=== PATIENT | male | born 1945 | race African-American/Black ===

== ENCOUNTER 2020-04-15 21:14 | Inpatient (IN) ==
[2020-04-15] MEDS ORDERED: ACETAMINOPHEN 325 MG TABLET PO PRN (22:50)
[2020-04-15] MEDS ORDERED: ONDANSETRON 4 MG/2 ML VIAL IV PRN (22:50)
[2020-04-15] MEDS ORDERED: ALBUTEROL 2.5 MG/3 ML NEB RESP TX PRN (22:50)
[2020-04-15] MEDS ORDERED: DOPamine 800 MG/250 ML PREMIX IV SCH (23:00)
[2020-04-15 23:01] LABS: Allen Test Positive; Pt O2 Delivery Device Ventilator
[2020-04-15 23:02] LABS: ABG Base Excess -0.5 MMOL/L (-2.5-2.5); ABG Oxygen Saturation 98.6 % (95-100); ABG PCO2 36.1 MM HG (35-48); ABG PH 7.422 (7.35-7.45); ABG TCO2 21.1 MMOL/L (23-27)
[2020-04-15] MEDS ORDERED: PIPERACILLIN/TAZOBACTAM 3,375 MG in SODIUM CHLORIDE 0.9% 100 ML IV SCH (23:30)
[2020-04-15] MEDS: SODIUM CHLORIDE 0.9% 1,000 ML IV SCH (23:35)
[2020-04-15] MEDS ORDERED: NOREPINEPHRINE 4 MG/4 ML VIAL IV ONE ×2 (23:39→23:40)
[2020-04-15] MEDS: PHENYLEPHRINE DRIP 40 MG/250 ML PREMIX IV PRN (23:41)
[2020-04-15] MEDS ORDERED: PHENYLEPHRINE DRIP 40 MG/250 ML PREMIX IV ONE (23:42)
[2020-04-15] MEDS ORDERED: SODIUM CHLORIDE 0.9% 500 ML IV ONE (23:48)
[2020-04-16] MEDS: PIPERACILLIN/TAZOBACTAM 3,375 MG in SODIUM CHLORIDE 0.9% 100 ML IV SCH ×2 (00:16→12:19)
[2020-04-16 02:28] LABS: Apearance,Urine Slightly Hazy (Clear); Bilirubin,Urine Negative (Negative); Blood, Urine Negative (Negative); Glucose,Urine (UA) Negative (Negative); Ketones,Urine Negative (Negative); Nitrite,Urine Negative (Negative); Protein,Urine 100 MG/DL; RBC,Urine 4 /HPF (0-4); Squamous Epithelial Cell,Urine Occasional /HPF (0-10); Urine Color Yellow (Yellow); Urine Specific Gravity 1.017 (1.001-1.035); Urine Urobilinogen < 2.0 EU/DL (0.2-1.0); WBC,Urine 135 /HPF (0-6)
[2020-04-16] MEDS: SODIUM CHLORIDE 0.9% 1,000 ML IV SCH ×2 (03:29→09:17)
[2020-04-16 04:50] LABS: Allen Test Positive; Pt O2 Delivery Device Ventilator
[2020-04-16 04:59] LABS: ABG Base Excess -0.3 MMOL/L (-2.5-2.5); ABG HCO3 24.2 MMOL/L (20-26); ABG PCO2 29.3 MM HG (35-48); ABG TCO2 20.4 MMOL/L (23-27)
[2020-04-16 05:27] LABS: Basophils % 0.1 % (0.0-0.8); Hematocrit 31.4 VOL% (42.0-52.0); Hemoglobin 9.5 GM/DL (14.0-18.0); Immature Granulocytes % 1.2 %; Immature Granulocytes Absolute 0.28 #; Lymphocytes # 3.1 10*3/uL (1.4-4.0); Lymphocytes % 12.9 % (21.2-54.2); Mean Corpuscular HGB Conc 30.3 GM/DL (32-36); Mean Platelet Volume 12.7 FL (9.6-12.0); Monocytes % 6.5 % (1.7-12.7); NRBC # 0.02 10*3/uL; Neutrophils % 79.3 % (38.7-73.9); Platelet Count 297 T/CUMM (130-400); Red Blood Count 3.11 MC/CUMM (3.8-5.5); Red Cell Distribution Width 15.7 % (9.3-17.3); White Blood Count 24.3 T/CUMM (4-12)
[2020-04-16 05:41] LABS: Calcium 8.7 MG/DL (8.5-10.1); Osmolality,Calculated 346.4 MOS/KG (273-304)
[2020-04-16 05:50] LABS: Band Neutrophils 1 % (0-10); Hypochromasia Slight; Lymphocytes 10 % (20-55); Macrocytosis Slight; Platelet Estimate Normal; Segmented Neutrophils 87 % (50-85); Total Cells Counted 100
[2020-04-16] MEDS: DEXTROSE 5% NACL 0.45% 1,000 ML IV SCH ×2 (08:27→09:25)
[2020-04-16] MEDS ORDERED: ENOXAPARIN 30 MG/0.3 ML SYRINGE SUBCUT SCH (09:00)
[2020-04-16] MEDS ORDERED: ENOXAPARIN 40 MG/0.4 ML SYRINGE SUBCUT SCH (09:00)
[2020-04-16] MEDS ORDERED: PANTOPRAZOLE 40 MG VIAL IV SCH (09:00)
[2020-04-16] MEDS ORDERED: PANTOPRAZOLE 40 MG TABLET PO SCH (09:00)
[2020-04-16 10:33] LABS: Calcium 9.1 MG/DL (8.5-10.1); Osmolality,Calculated 346.6 MOS/KG (273-304)
[2020-04-16] MEDS: PHENYLEPHRINE DRIP 40 MG/250 ML PREMIX IV PRN (11:31)
[2020-04-16] MEDS ORDERED: VANCOMYCIN INJ 750 MG in SODIUM CHLORIDE 0.9% 250 ML IV PRN (11:50)
[2020-04-16] MEDS ORDERED: LEVOFLOXACIN INJ 750 MG in PREMIX 1 EACH IV SCH (12:00)
[2020-04-16] MEDS ORDERED: VANCOMYCIN INJ 1,000 MG in SODIUM CHLORIDE 0.9% 250 ML IV ONE (12:00)
[2020-04-16] MEDS ORDERED: MORPHINE 4 MG/1 ML VIAL IV PRN (13:08)
[2020-04-16] MEDS ORDERED: LORazepam 2 MG/1 ML VIAL IV PRN (13:08)
[2020-04-16] MEDS: fentaNYL 50 MCG/HR PATCH TRANSDERM SCH (13:39)
[2020-04-19] MEDS: fentaNYL 50 MCG/HR PATCH TRANSDERM SCH (09:29)
[2020-04-21 08:03] VITALS: BP 119/50
== END 2020-04-21 16:37 | DRG 871 ==
LOC: N.ICU 22:30 → SUATTDRO 22:30 → N.5E 04-16 15:56
PROVIDERS: ADMIT Internal Medicine; ATTEND Family Medicine